=== PATIENT | male | born 1965 | race Caucasian/White ===

== ENCOUNTER 2023-06-23 15:09 | Emergency (ER) | payer OTHER, SELFPAY ==
--- NOTE | ~2023-06-23 | XR_ITS ---
PA, oblique, and lateral views of the left index finger Clinical history: Laceration FINDINGS: No fracture or dislocation seen. Osseous alignment is anatomic. Joint spaces are preserved. No gross soft tissue reality seen. IMPRESSION: No significant abnormality identified. Reviewed, dictated and finalized at [facility].
[2023-06-23 15:12] VITALS: BP 167/91; PULSE 83; RESP 18; TEMP 36.3; O2SAT 95
--- NOTE | 2023-06-23 16:31 | ED.WOUNDLAC ---
HPI - Wound/Laceration General Chief Complaint: Wound/Laceration Stated Complaint: laceration Time Seen by Provider: 06/23/23 15:21 Source: patient Mode of arrival: ambulatory Limitations: no limitations History of Present Illness HPI narrative: This is a 58 year old male that presents to the ER for laceration to the left second finger sustained just prior to arrival. Reports he accidentally cut his left second finger with a hand saw. Reports bleeding and pain to the area. He is unsure of his last tetanus vaccination. Denies decreased range of motion or numbness. Related Data Allergies Allergy/AdvReac Type Severity Reaction Status Date / Time No Known Allergies Allergy Verified 06/23/23 15:33 Review of Systems Review of Systems: CONSTITUTIONAL: Denies fever SKIN: Reports laceration NEUROLOGIC: Denies numbness, or weakness. All systems reviewed & are unremarkable except as noted in HPI and below PMFSH Past Medical History Medical History (Updated 06/23/23 @ 16:40 by Julissa Buck PA-C) History of hyperlipidemia History of hypertension Social History Social History (Updated 06/23/23 @ 16:35 by Julissa Buck PA-C) Substance use: never Exam Narrative: GENERAL: Well-appearing, well-nourished, and in no acute distress. HEAD: Normocephalic, atraumatic. EYES: EOMI. EXTREMITIES: Normal range of motion. No edema. Left second finger with 3 cm linear laceration into subcutaneous tissue over the dorsal aspect of the proximal interphalangeal joint. SKIN: Warm, dry, no rash. NEURO: No focal deficits. Alert and oriented x3. PSYCH: Normal mood and affect Course Course Emergency Course: Patient and family educated on wound care Vital Signs Vital signs: Vital Signs Temperature 97.4 F L 06/23/23 15:12 Pulse Rate 83 06/23/23 15:12 Respiratory Rate 18 06/23/23 15:12 Blood Pressure 167/91 H 06/23/23 15:12 Pulse Oximetry 95 06/23/23 15:12 Oxygen Delivery Room Air 06/23/23 15:12 Temperature 97.4 F L 06/23/23 15:12 Pulse Rate 83 06/23/23 15:12 Respiratory Rate 18 06/23/23 15:12 Blood Pressure 167/91 H 06/23/23 15:12 Pulse Oximetry 95 06/23/23 15:12 Oxygen Delivery Room Air 06/23/23 15:12 Procedures Laceration Laceration 1: Date: 06/23/23 Time: 16:38 Site: hand Side (If applicable): right Size (cm): 3 Description: linear Depth: simple, single layer Local Anesthetic: lidocaine 1% Amount of anesthesia used (mL): 4 Pre-repair: wound explored and irrigated ====== Skin Level ====== Skin layer closed with: nylon Size (cm): 4-0 Number of sutures: 6 Technique: simple, interrupted ====== Subcutaneous Layer ====== ====== Muscle Layer ====== ====== Tendon Layer ====== MDM - Wound/Laceration MDM Narrative Medical decision making narrative: Patient presents to the emergency department for a laceration to his left second finger sustained just prior to arrival. Patient is neurovascularly intact. Left second finger x-ray is without acute osseous abnormalities. Patient's wound was irrigated and closed with sutures. Patient updated on tetanus. As this was a complicated wound with involvement of the joint will start patient on oral antibiotics and have him follow-up with hand surgery. He was educated on wound care. He was given warnings to return to the ER Differential Diagnosis Differential diagnosis: Likely laceration, abrasion and avulsion of skin Imaging Data Radiologist's impression: ITS Impressions Finger X-Ray 06/23/23 15:32 IMPRESSION: No significant abnormality identified. Critical Care Time Critical Care Time Critical Care Time: No Discharge Plan Discharge Clinical Impression: Laceration Patient Disposition: Home, Self-Care Condition: Stable Instructions: Antibiotic Form, Care For Your Stitch
[2023-06-23] MEDS: TETANUS,DIPHTHERIA,AC PERTUSSIS ADULT (0.5 ML) BOOSTRIX IM (16:55)
== END 2023-06-23 16:58 | disposition home or self-care (01) ==
PROVIDERS: Emergency Provider Physician Assistant; PCP Internal Medicine
DX: S61.211A Laceration without foreign body of left index finger without damage to nail, initial encounter (principal); E78.5 Hyperlipidemia, unspecified; I10 Essential (primary) hypertension; Z23 Encounter for immunization; W27.0XXA Contact with workbench tool, initial encounter
CPT/HCPCS: 12002; 73140; 90471; 90715; 99283